=== PATIENT | male | born 1975 | race Caucasian/White ===

== ENCOUNTER 2021-04-20 16:50 | Emergency (ER) | payer BC ==
[2021-04-20] MEDS ORDERED: Sodium Chloride 0.9% 1000 ML 1,000 ML IV STA (17:01)
[2021-04-20] MEDS ORDERED: Hydromorphone 1 mg/ml Injection IV ONE (17:01)
[2021-04-20] MEDS ORDERED: Zofran 4 MG/2 ML VIAL IV ONE (17:01)
--- NOTE | 2021-04-20 17:01 | ERPHSYRPT ---
- History of Present Illness Time Seen by Provider: 04/20/21 17:01 Historian: patient Patient Subjective Stated Complaint: " I had a sharp stabbing pain that occurred after I ate a cheeseburger around 3pm. The pain was really bad. The pain is now dull in my right side. I had nausea and an episode of diarrhea but no longer have nausea." Triage Nursing Assessment: Pt presents to ER with complaints of RUQ abdominal pains since 1500 after eating a cheeseburger. P Physician History: This is a 45-year-old white male with history of diabetes and hypertension and presents with sudden onset of right upper quadrant and epigastric abdominal pain after eating a hamburger. Patient ate a hamburger around 2 to 2:30 in the afternoon about 3:00 he was experiencing sharp pain in the right upper quadrant strong enough to double him over. He presents to the emergency department after having vomiting episodes. He is still in pain but it is not as bad as it was prior to arrival. He denies chest pain. He does not have any flulike symptoms. He has no diarrhea. He has no headache. He has no cough. He denies shortness of breath. Timing/Duration: today Quality: sharpness, stabbing Abdominal Pain Onset Location: RUQ Pain Radiation: no radiation Severity of Pain-Max: moderate Severity of Pain-Current: mild Modifying Factors: Improves With: vomiting Associated Symptoms: loss of appetite, nausea, vomiting Previous symptoms: no prior history Allergies/Adverse Reactions: aspirin Allergy (Severe, Verified 04/20/21 17:07) Shortness of Breath NSAIDS (Non-Steroidal Anti-Inflamma Allergy (Severe, Verified 04/20/21 17:07) Shortness of Breath Home Medications: Atorvastatin Calcium 20 mg PO DAILY 04/20/21 [History] Glipizide 5 mg [Glucotrol 5 MG] 5 mg PO DAILY 04/20/21 [History] Lisinopril 20 mg [Zestril 20 MG] 20 mg PO DAILY 04/20/21 [History] Metformin HCl 500 mg [Glucophage 500 MG] 500 mg PO BID 04/20/21 [History] Hx Tetanus, Diphtheria Vaccination/Date Given: No Hx Influenza Vaccination/Date Given: No Hx Pneumococcal Vaccination/Date Given: No Immunizations Up to Date: No Travel Risk - International Travel Have you traveled outside of the country in past 3 weeks: No - Coronavirus Screening Are you exhibiting any of the following symptoms?: No Close contact with a COVID-19 positive Pt in past 14-21 Days: No - Vaccine Status Have you recieved a Covid-19 vaccination: Yes Conversion Developer: Pfizer - Vaccination Dates Date of 2cond Vaccination (if applicable): 04/06 - Review of Systems Constitutional: No Symptoms Eyes: No Symptoms Ears, Nose, & Throat: No Symptoms Respiratory: No Symptoms Cardiac: No Symptoms Abdominal/Gastrointestinal: Abdominal Pain, Nausea, Vomiting Genitourinary Symptoms: No Symptoms Musculoskeletal: No Symptoms Skin: No Symptoms Neurological: No Symptoms Psychological: No Symptoms Endocrine: No Symptoms Hematologic/Lymphatic: No Symptoms Immunological/Allergic: No Symptoms All Other Systems: Reviewed and Negative - Past Medical History Pertinent Past Medical History: Yes Cardiac History: Hypertension Endocrine Medical History: Diabetes Type II - Past Surgical History Past Surgical History: Yes Gastrointestinal: Appendectomy - Social History Smoking Status: Never smoker Exposure to second hand smoke: No Drug Use: none Patient Lives Alone: No - Nursing Vital Signs Nursing Vital Signs: Initial Vital Signs Temperature 97.6 F 04/20/21 16:51 Pulse Rate 90 04/20/21 16:51 Respiratory Rate 14 04/20/21 16:51 Blood Pressure 163/108 04/20/21 16:51 O2 Sat by Pulse Oximetry 97 04/20/21 16:51 Pain Scale Pain Intensity 4 - Physical Exam General Appearance: mild distress, alert, anxiety Eye Exam: PERRL/EOMI, eyes nml inspection Ears, Nose, Throat Exam: normal ENT inspection, moist mucous membranes Neck Exam: normal inspection, non-tender, supple, full range of motion Respiratory Exam: normal breath sounds, lungs clear, airway intact, No chest tenderness, No respiratory distress Cardiovascular Exam: regular rate/rhythm, normal heart sounds, normal peripheral pulses Gastrointestinal/Abdomen Exam: soft, normal bowel sounds, tenderness, guarding (Right upper quadrant mild to palpation), No rebound Rectal Exam: not done Back Exam: normal inspection, normal range of motion, No CVA tenderness, No vertebral tenderness Extremity Exam: normal inspection, normal range of motion, pelvis stable Neurologic Exam: alert, oriented x 3, cooperative, buffing wheel raker II-XII nml as tested, normal mood/affect, nml cerebellar function, nml station & gait, sensation nml Skin Exam: normal color, warm, dry Lymphatic Exam: No adenopathy SpO2 Interpretation: normal SpO2: 97 O2 Delivery: Room Air - Course Nursing assessment & vital signs reviewed: Yes Ordered Tests: Active Orders 24 hr Category Date Time Status IV Insertion STAT Care 04/20/21 17:01 Active ABDOMEN AND PELVIS W/0 CONTRAS [CT] Stat Exams 04/20/21 17:47 Taken AMYLASE Stat Lab 04/20/21 17:20 Completed CBC W DIFF Stat Lab 04/20/21 17:20 Completed CMP Stat Lab 04/20/21 17:20 Completed LIPASE Stat Lab 04/20/21 17:20 Completed Lactic Acid Stat Lab 04/20/21 17:05 Completed UA W/RFX UR CULTURE Stat Lab 04/20/21 17:18 Completed Medication Summary Discontinued Medications Generic Name Dose Route Start Last Admin Trade Name Freq PRN Reason Stop Dose Admin Hydromorphone HCl 1 mg 04/20/21 17:01 04/20/21 18:39 Hydromorphone 1 Mg/1ml Inj 1 Mg/Ml Syringe IV 04/20/21 17:02 Not Given STAT ONE Sodium Chloride 1,000 mls @ 999 mls/hr 04/20/21 17:01 04/20/21 18:32 Sodium Chloride 0.9% 1000 Ml IV 04/20/21 18:01 Infused .Q1H1M STA Infusion Sodium Chloride Confirm 04/20/21 17:09 Sodium Chloride 0.9% 1000 Ml Administered 04/20/21 17:10 Dose 1,000 mls @ ud .ROUTE .STK-MED ONE Ondansetron HCl 4 mg 04/20/21 17:01 04/20/21 18:39 Ondansetron Hcl 4 Mg/2 Ml Vial IV 04/20/21 17:02 Not Given STAT ONE Lab/Rad Data: Laboratory Result Diagrams 04/20/21 17:20 04/20/21 17:20 Laboratory Results 04/20/21 04/20/21 04/20/21 Range/Units 17:20 17:20 17:18 WBC 6.7 (4.0-10.5) K/mm3 RBC 6.03 H (4.1-5.6) M/mm3 Hgb 18.1 H (12.5-18.0) gm/dl Hct 51.7 H (42-50) % MCV 85.7 (78-100) fl MCH 30.0 (26-32) pg MCHC 35.0 (32-36) g/dl RDW 13.5 (11.5-14.0) % Plt Count 242 (150-450) K/mm3 MPV 10.8 (7.5-11.0) fl Gran % 50.1 (36.0-66.0) % Eos # (Auto) 0.15 (0-0.5) Absolute Lymphs (auto) 2.46 (1.0-4.6) Absolute Monos (auto) 0.67 (0.0-1.3) Lymphocytes % 37.0 (24.0-44.0) % Monocytes % 10.1 (0.0-12.0) % Eosinophils % 2.3 (0.00-5.0) % Basophils % 0.5 (0.0-0.4) % Absolute Granulocytes 3.34 (1.4-6.9) Basophils # 0.03 (0-0.4) Sodium 137 (137-145) mmol/L Potassium 4.9 (3.5-5.1) mmol/L Chloride 101 (98-107) mmol/L Carbon Dioxide 25 (22-30) mmol/L Anion Gap 16.4 H (5-15) MEQ/L BUN 21 H (9-20) mg/dL Creatinine 1.00 (0.66-1.25) mg/dL Estimated GFR > 60.0 ML/MIN Glucose 285 H (74-106) mg/dL Lactic Acid (0.4-2.0) Calcium 9.7 (8.4-10.2) mg/dL Total Bilirubin 0.80 (0.2-1.3) mg/dL AST 31 (17-59) U/L ALT 34 (0-50) U/L Alkaline Phosphatase 164 H (38-126) U/L Serum Total Protein 8.4 H (6.3-8.2) g/dL Albumin 4.8 (3.5-5.0) g/dL Amylase 78 (30-110) U/L Lipase 114 (23-300) U/L Urine Color YELLOW (YELLOW) Urine Appearance CLEAR (CLEAR) Urine pH 6.0 (5-6) Ur Specific Fox 1.031 (1.005-1.025) Urine Protein NEGATIVE (Negative) Urine Ketones TRACE (NEGATIVE) Urine Blood NEGATIVE (0-5) Donnie/ul Urine Nitrite NEGATIVE (NEGATIVE) Urine Bilirubin NEGATIVE (NEGATIVE) Urine Urobilinogen NEGATIVE (0-1) mg/dL Ur Leukocyte Esterase NEGATIVE (NEGATIVE) Urine WBC (Auto) NONE SEEN (0-5) /HPF Urine RBC (Auto) NONE SEEN (0-2) /HPF U Epithel Cells (Auto) NONE (FEW) /HPF Urine Bacteria (Auto) NONE SEEN (NEGATIVE) /HPF Urine Culture Reflexed NO (NO) Urine Glucose >=500 (NEGATIVE) mg/dL 04/20/21 Range/Units 17:05 WBC (4.0-10.5) K/mm3 RBC (4.1-5.6) M/mm3 Hgb (12.5-18.0) gm/dl Hct (42-50) % MCV (78-100) fl MCH (26-32) pg MCHC (32-36) g/dl RDW (11.5-14.0) % Plt Count (150-450) K/mm3 MPV (7.5-11.0) fl Gran % (36.0-66.0) % Eos # (Auto) (0-0.5) Absolute Lymphs (auto) (1.0-4.6) Absolute Monos (auto) (0.0-1.3) Lymphocytes % (24.0-44.0) % Monocytes % (0.0-12.0) % Eosinophils % (0.00-5.0) % Basophils % (0.0-0.4) % Absolute Granulocytes (1.4-6.9) Basophils # (0-0.4) Sodium (137-145) mmol/L Potassium (3.5-5.1) mmol/L Chloride (98-107) mmol/L Carbon Dioxide (22-30) mmol/L Anion Gap (5-15) MEQ/L BUN (9-20) mg/dL Creatinine (0.66-1.25) mg/dL Estimated GFR ML/MIN Glucose (74-106) mg/dL Lactic Acid 1.8 (0.4-2.0) Calcium (8.4-10.2) mg/dL Total Bilirubin (0.2-1.3) mg/dL AST (17-59) U/L ALT (0-50) U/L Alkaline Phosphatase (38-126) U/L Serum Total Protein (6.3-8.2) g/dL Albumin (3.5-5.0) g/dL Amylase (30-110) U/L Lipase (23-300) U/L Urine Color (YELLOW) Urine Appearance (CLEAR) Urine pH (5-6) Ur Specific Fox (1.005-1.025) Urine Protein (Negative) Urine Ketones (NEGATIVE) Urine Blood (0-5) Donnie/ul Urine Nitrite (NEGATIVE) Urine Bilirubin (NEGATIVE) Urine Urobilinogen (0-1) mg/dL Ur Leukocyte Esterase (NEGATIVE) Urine WBC (Auto) (0-5) /HPF Urine RBC (Auto) (0-2) /HPF U Epithel Cells (Auto) (FEW) /HPF Urine Bacteria (Auto) (NEGATIVE) /HPF Urine Culture Reflexed (NO) Urine Glucose (NEGATIVE) mg/dL - Progress Progress: improved Progress Note: 04/20/21 18:52 Patient states that his right upper quadrant abdominal pain is a 1 out of 10. We will order an outpatient gallbladder ultrasound for tomorrow or the next couple days if unavailable tomorrow. 04/20/21 18:54 CAT scan of the abdomen and pelvis without contrast shows no acute intra- abdominal or intrapelvic abnormality. Counseled pt/family regarding: lab results, diagnosis, need for follow-up, rad results - Departure Departure Disposition: Home Clinical Impression: Right upper quadrant abdominal pain, Vomiting Condition: Stable Critical Care Time: No Referrals: TEJINDER COFFEY MD [Primary Care Provider] - Follow up/PCP as directed Additional Instructions: Drink clear liquids. Avoid fatty greasy spicy foods. Follow-up at the radiology department at your scheduled gallbladder ultrasound appointment date and time. Prescriptions: Ondansetron ODT 4 MG [Zofran Odt 4 mg] 4 mg PO Q6H PRN PRN #10 tablet PRN Reason: Vomiting
[2021-04-20] MEDS ORDERED: Sodium Chloride 0.9% 1000 ML 1,000 ML ONE (17:09)
[2021-04-20 17:50] LABS: Absolute Neutrophil Ct (ANC) 3.34 (1.4-6.9); Basophil (Absolute #) 0.03 (0-0.4); Eosinophil % 2.3 % (0.00-5.0); Eosinophil (Absolute #) 0.15 (0-0.5); Hematocrit 51.7 % (42-50); Hemoglobin 18.1 gm/dl (12.5-18.0); Lymphocyte (Absolute #) 2.46 (1.0-4.6); Mean Cell Volume 85.7 fl (78-100); Mean Platelet Volume 10.8 fl (7.5-11.0); Monocyte (Absolute #) 0.67 (0.0-1.3); Monocytes % 10.1 % (0.0-12.0); Neutrophil % 50.1 % (36.0-66.0); Platelet Count 242 K/mm3 (150-450); Red Blood Count 6.03 M/mm3 (4.1-5.6); Red Cell Distribution Width 13.5 % (11.5-14.0); White Blood Count 6.7 K/mm3 (4.0-10.5)
[2021-04-20 17:52] LABS: Appearance CLEAR (CLEAR); Bilirubin NEGATIVE (NEGATIVE); Blood NEGATIVE Ery/ul (0-5); Glucose >=500 mg/dL (NEGATIVE); Ketones TRACE (NEGATIVE); Leukocyte Esterase NEGATIVE (NEGATIVE); Nitrite NEGATIVE (NEGATIVE); Protein,Urine Dip NEGATIVE (Negative); Specific Gravity 1.031 (1.005-1.025); Urobilinogen NEGATIVE mg/dL (0-1)
[2021-04-20 17:54] LABS: Bacteria NONE SEEN /HPF (NEGATIVE); RBC NONE SEEN /HPF (0-2); WBC NONE SEEN /HPF (0-5)
[2021-04-20 18:02] LABS: ALBUMIN 4.8 g/dL (3.5-5.0); ALKALINE PHOSPHATASE 164 U/L (38-126); AMYLASE 78 U/L (30-110); ANION GAP 16.4 MEQ/L (5-15); BLOOD UREA NITROGEN 21 mg/dL (9-20); CHLORIDE 101 mmol/L (98-107); Calcium 9.7 mg/dL (8.4-10.2); Carbon Dioxide 25 mmol/L (22-30); EST GLOMERULAR FILTRATION RATE > 60.0 ML/MIN; Glucose 285 mg/dL (74-106); LIPASE 114 U/L (23-300); Potassium 4.9 mmol/L (3.5-5.1); SGOT/AST 31 U/L (17-59); SGPT/ALT 34 U/L (0-50); SODIUM 137 mmol/L (137-145); Total Protein 8.4 g/dL (6.3-8.2)
[2021-04-20 19:01] VITALS: BP 139/94; PULSE 86; O2SAT 100
--- NOTE | 2021-04-21 08:46 | XRAY ---
Indication: Right upper quadrant pain. Vomiting and diarrhea. Multiple contiguous axial images obtained through the abdomen and pelvis without contrast. Comparison: None Lung bases demonstrates 4 mm left base noncalcified nodule possibly granulomatous. No infiltrate or effusion. Heart not enlarged. 9 mm distal paraesophageal calcified node. Stomach is distended with food/fluid. Noncontrasted stomach and bowel loops appear nonobstructed. Previous appendectomy. Mild fecal debris in the ascending colon. Minimal scattered colonic diverticulosis without diverticulitis. Fatty hepatomegaly measuring 19 cm. No free fluid/air. Remaining liver, gallbladder, pancreas, spleen, adrenal glands, kidneys, ureters, bladder, and aorta are unremarkable for noncontrast exam. Osseous structures intact with mild L5-S1 degenerative disc disease. No ventral or inguinal hernias. Impression: 1. Fatty hepatomegaly and colonic diverticulosis. 2. 4 mm left lung base noncalcified nodule possibly granulomatous as there is small distal paraesophageal calcified node. Outside comparison studies recommended if available. If not, CT chest recommended as baseline with follow-up per Fleischner guidelines. 3. Remaining CT abdomen/pelvis without contrast exam is negative.
== END 2021-04-20 19:05 | disposition home or self-care (01) ==
LOC: ED 16:50
DX: R10.11 Right upper quadrant pain (principal); R11.2 Nausea with vomiting, unspecified; R10.13 Epigastric pain; I10 Essential (primary) hypertension; E11.9 Type 2 diabetes mellitus without complications; Z79.84 Long term (current) use of oral hypoglycemic drugs
CPT/HCPCS: 36000; 36415; 74176; 80053; 81001; 82150; 83605; 83690; 85025; 96360; 99284